=== PATIENT | female | born 1950 | race Caucasian/White ===

== ENCOUNTER 2018-11-02 09:01 | Day surgery (SDC) | payer MEDICARE, BC ==
[~2018-11-02 09:01] MED LIST: Lactated Ringers 1,000 ML IV SCH; Lidocaine 1%/Sod Bicarbonate in NS 8.4% 1 ML Syringe IDERM PRN; Sodium Chloride 0.9% 10 ML Syringe FLUSH PRN
--- NOTE | 2018-11-02 10:25 | PCM.PREANE ---
Preanesthetic Assessment - Procedure Proposed Procedure: egd colonoscopy - Anesthesia/Transfusion/Family Hx Anesthesia History: Prior Anesthesia Without Reaction Family History of Anesthesia Reaction: No Transfusion History: Unknown - Review of Systems General: No Symptoms Pulmonary: Cough (1.5 years- related to sinus) Cardiovascular: No Symptoms Gastrointestinal: No Symptoms Neurological: No Symptoms Other: Reports: Anxiety - Physical Assessment NPO Status Date: 11/02/18 NPO Status Time: 05:00 Pulse: 66 O2 Sat by Pulse Oximetry: 96 Respiratory Rate: 17 Blood Pressure: 130/62 Temperature: 98 F Height: 4 ft 10 in Weight: 57.2 kg ASA Class: 2 Mental Status: Alert & Oriented x3 Airway Class: Mallampati = 1 Dentition: Reports: Normal Dentition Thyro-Mental Finger Breadths: 2 Mouth Opening Finger Breadths: 3 ROM/Head Extension: Full Lungs: Clear to Auscultation, Normal Respiratory Effort Cardiovascular: Regular Rate, Regular Rhythm - Allergies Allergies/Adverse Reactions: Allergies Allergy/AdvReac Type Severity Reaction Status Date / Time Sulfa (Sulfonamide AdvReac Nausea Verified 11/01/18 12:26 Antibiotics) - Blood Blood Available: No - Acknowledgements Anesthesia Type Planned: MAC Pt an Appropriate Candidate for the Planned Anesthesia: Yes Alternatives and Risks of Anesthesia Discussed w Pt/Guardian: Yes Pt/Guardian Understands and Agrees with Anesthesia Plan: Yes PreAnesthesia Questionnaire HEENT History: Reports: None Cardiovascular History: Reports: High Cholesterol Respiratory History: Reports: None Gastrointestinal History: Reports: Other (See Below) Other Gastrointestinal History: abdominal pain, rectal bleeding, constipation, gi discomfort Genitourinary History: Reports: None DINING ROOM COORDINATOR History: Reports: Other (See Below) Other OB/BYN History: atrophic vaginitis Musculoskeletal History: Reports: Back Pain, Chronic Neurological History: Reports: None Psychiatric History: Reports: Anxiety Endocrine/Metabolic History: Reports: None Hematologic History: Reports: None Immunologic History: Reports: None Oncologic (Cancer) History: Reports: Other (See Below) (cervical cancer) Dermatologic History: Reports: Cellulitis - Past Surgical History Head Surgeries/Procedures: Reports: None HEENT Surgical History: Reports: None Cardiovascular Surgical History: Reports: None Respiratory Surgical History: Reports: None GI Surgical History: Reports: Cholecystectomy Female Surgical History: Reports: Hysterectomy, Oophorectomy, Other (See Below) (rectocele cystocele and) Male Surgical History: Reports: None Endocrine Surgical History: Reports: None Neurological Surgical History: Reports: None Oncologic Surgical History: Reports: None Dermatological Surgical History: Reports: None - SUBSTANCE USE Smoking Status *Q: Never Smoker Tobacco Use Within Last Twelve Months: No Second Hand Smoke Exposure: No Days Per Week of Alcohol Use: 1 (rare) Recreational Drug Use History: No - HOME MEDS Home Medications: Home Meds Bree/Cell/Lipas/Malt/Prt/Lac/in [Digestive Enzymes Capsule] 6 cap PO DAILY [History] C-Bi-Est 1 dose VAG Q72H 11/01/18 [History] Carboxymethylcellulose [Methocel E 4 M] 100 mg PO BEDTIME 11/01/18 [History] Cholecalciferol (Vitamin D3) [Vitamin D3] 1,000 unit PO DAILY 11/01/18 [History] Cyanocobalamin (Vitamin B-12) [Vitamin B-12] 1,000 mcg PO DAILY 11/01/18 [ History] E-Estriol 1 dose TOP DAILY 11/01/18 [History] Hi-Stress B And C 1 tab PO DAILY 11/01/18 [History] L.acidoph,Paracasei, B.lactis [Probiotic] 1 cap PO DAILY 11/01/18 [History] LORazepam 0.5 mg PO BID 11/01/18 [History] MV-Mn/Lycop/Lut/Herbal [id number] [Phytomulti Tablet] 1 tab PO DAILY 11/01/18 [ History] Magnesium 400 mg PO DAILY 11/01/18 [History] Melatonin/Pyridoxine HCl (B6) [Melatonin 3 mg Tablet] 3 mg PO BEDTIME 11/01/18 [ History] Metaxalone [Skelaxin] 800 mg PO BID 11/01/18 [History] Potassium 99 mg PO DAILY 11/01/18 [History] Ubidecarenone [Coq-10] 100 mg PO DAILY 11/01/18 [History] traZODone HCl [Trazodone HCl] 50 mg PO BEDTIME 11/01/18 [History] - CURRENT (IN HOUSE) MEDS Current Meds: Current Medications Lactated Ringer's (Ringers, Lactated) 1,000 mls @ 125 mls/hr IV ASDIRECTED MARC Stop: 11/02/18 23:00 Lidocaine/Sodium Bicarbonate (Buffered Lidocaine 1% In Ns 8.4%) 0.25 ml IDERM ONETIME PRN PRN Reason: Prior to IV Start Stop: 11/02/18 18:00 Sodium Chloride (Saline Flush) 10 ml FLUSH ASDIRECTED PRN PRN Reason: Keep Vein Open Stop: 11/02/18 18:00
[2018-11-02] MEDS ORDERED: Propofol 200 MG/20 ML SDV ONE ×2 (10:32→11:18)
--- NOTE | 2018-11-02 11:40 | PCM.POSTAN ---
POST ANESTHESIA ASSESSMENT - MENTAL STATUS Mental Status: Alert - RESPIRATORY Respiratory Status: Respiratory Rate WNL, Airway Patent, O2 Saturation Stable, Supplemental Oxygen, Labored Respirations - CARDIOVASCULAR CV Status: Pulse Rate WNL, Blood Pressure Stable - GASTROINTESTINAL GI Status: No Symptoms - POST OP HYDRATION Hydration Status: Adequate & Stable
--- NOTE | 2018-11-02 11:40 | PCM48HPAN ---
Post Anesthesia Note - EVALUATION WITHIN 48HRS OF ANESTHETIC Vital Signs in Normal Range: Yes Patient Participated in Evaluation: Yes Respiratory Function Stable: Yes Airway Patent: Yes Cardiovascular Function Stable: Yes Hydration Status Stable: Yes Pain Control Satisfactory: Yes Nausea and Vomiting Control Satisfactory: Yes Mental Status Recovered: Yes Pulse Rate: 66 Resp Rate: 17 Temperature: 36.6 C Blood Pressure: 130/62
--- NOTE | 2018-11-02 18:06 | OR ---
DATE OF OPERATION: 11/02/2018 SURGEON: Rashawn Rangel MD PREOPERATIVE DIAGNOSIS: Abdominal pain, bleeding per rectum, and change in bowel habits. POSTOPERATIVE DIAGNOSIS: Abdominal pain, bleeding per rectum, change in bowel habits, and diverticulosis. OPERATION PERFORMED: Diagnostic colonoscopy and polypectomy x2. ANESTHESIA: MAC. PATHOLOGY: 1. Ascending colon polyp. 2. Transverse colon polyp. FINDINGS: She had an excellent bowel prep. I identified 2 polyps in the colon, one in the ascending colon, removed in its entirety with biopsy forceps, and one in the transverse colon, removed in its entirety with the biopsy forceps. Both these polyps were less than 5 mm in greatest dimension. She also was noted to have pandiverticulosis, more notably in the left colon than in the right. DISPOSITION: Stable at the end of the procedure. INDICATION: The patient is a 68-year-old female who presented to my office complaining of new onset abdominal pain associated with a change in bowel habits and bleeding per rectum. I realized that she had a colonoscopy just 2 years ago, but my concern was that she had a missed malignancy. The patient was offered a screening colonoscopy. I could not identify a reason to do an upper endoscopy. She had no reflux, epigastric abdominal pain, bloating, or any other concerning symptom to associate with the esophagus, stomach, or duodenum. She was fully informed of the major risks, benefits, and alternatives. These include, but are not limited to, perforation of the colon, bleeding, risks of anesthesia, and possibly further surgery. She gave informed consent to what was done. DESCRIPTION OF PROCEDURE: The patient was brought to the gastro suite and placed in a left lateral decubitus position. She was given monitored anesthesia. A digital rectal exam was performed. This was unremarkable. I introduced the colonoscope into the rectum with copious lubrication. With gentle forward pressure, I advanced the scope to the cecum keeping the lumen in view at all times. I documented the cecum photographically. I fully investigated the mucosa of the colon from the cecum back to the anus, an exam lasting 11 minute. A thorough careful examination failed to demonstrate any strictures. However, she did have a bit of a tight curvature in the sigmoid colon, which is not a true stenosis. She was notable for pandiverticulosis. I identified 2 polyps in the ascending colon and transverse colon, both these polyps were removed in their entirety when they were encountered with a biopsy forceps. I watched for any bleeding after the procedure and there was none. As I withdrew the scope, I inspected for any further polyps. I found no further polyps, stenosis, or mucosal lesions of any kind. At the end the procedure, the scope was removed, air was evacuated on the way out. PLAN: Based on examination today, she will need another colonoscopy in 5 years. If this changes based on the results of the pathology, of course, my office will notify her. ESTIMATED BLOOD LOSS: MMODAL /[id number]
== END 2018-11-02 12:22 | disposition home or self-care (01) ==
LOC: JD.SDS 09:01
PROVIDERS: ATTEND Surgery
DX: K62.5 Hemorrhage of anus and rectum (principal); D12.2 Benign neoplasm of ascending colon; K63.5 Polyp of colon; K57.30 Diverticulosis of large intestine without perforation or abscess without bleeding; K63.89 Other specified diseases of intestine; E78.00 Pure hypercholesterolemia, unspecified; F41.9 Anxiety disorder, unspecified; G47.00 Insomnia, unspecified; M54.9 Dorsalgia, unspecified; Z88.2 Allergy status to sulfonamides; Z79.899 Other long term (current) drug therapy
CPT/HCPCS: 45380; J2704; J7120; 00812

== ENCOUNTER 2023-12-04 11:05 | Emergency (ER) | payer MEDICARE ==
[2023-12-04 12:18] LABS: APPEARANCE,URINE CLEAR (Clear); BILIRUBIN,URINE NEGATIVE (Negative); COLOR,URINE YELLOW (Yellow); GLUCOSE,URINE NEGATIVE (Negative); KETONES,URINE NEGATIVE (Negative); LEUKOCYTE ESTERASE,URINE 3+ (Negative); NITRITE,URINE NEGATIVE (Negative); OCCULT BLOOD,URINE TRACE-INTACT (Negative); PROTEIN,URINE NEGATIVE (Negative); UROBILINOGEN,URINE 0.2 (0.2-1.0)
[2023-12-04 13:07] LABS: BACTERIA,URINE MODERATE /hpf (FEW); MUCUS,URINE FEW /hpf (FEW); WBC,URINE >100 /hpf (0-5)
== END 2023-12-04 13:00 | disposition home or self-care (01) ==
LOC: JD.ED 11:05
DX: N39.0 Urinary tract infection, site not specified (principal); Z90.49 Acquired absence of other specified parts of digestive tract; Z90.710 Acquired absence of both cervix and uterus; Z79.899 Other long term (current) drug therapy; Z88.2 Allergy status to sulfonamides
CPT/HCPCS: 81001; 87086; 99283

== ENCOUNTER 2024-09-14 07:40 | Day surgery (SDC) | payer MEDICARE ==
[~2024-09-14 07:40] MED LIST changes: -Lactated Ringers 1,000 ML IV SCH; -Lidocaine 1%/Sod Bicarbonate in NS 8.4% 1 ML Syringe IDERM PRN; +Propofol 200 MG/20 ML SDV ONE; +Sodium Chloride 0.9% 10 ML Syringe FLUSH SCH
[2024-09-14] MEDS: Lactated Ringers 1,000 ML IV SCH (08:20)
== END 2024-09-14 10:50 | disposition home or self-care (01) ==
LOC: JD.SDS 07:40
PROVIDERS: ATTEND Surgery
DX: Z12.11 Encounter for screening for malignant neoplasm of colon (principal); K63.5 Polyp of colon; E78.00 Pure hypercholesterolemia, unspecified; Z79.899 Other long term (current) drug therapy; Z88.2 Allergy status to sulfonamides; Z88.8 Allergy status to other drugs, medicaments and biological substances
CPT/HCPCS: 00811; 88305; 99100; J2704; J7120